=== PATIENT | female | born 1925 | race Caucasian/White ===

== ENCOUNTER 2016-09-04 16:36 | Emergency (ER) | payer MEDICARE, BC ==
[2016-09-04] MEDS ORDERED: ONDANSETRON HCL IV 4 MG/2 ML VIAL IVP ONE (17:16)
--- NOTE | 2016-09-04 17:21 | Emergency Department Record ---
History of Present Illness - General Chief complaint: Vomiting Stated complaint: SHAKING UNCONTROLLED Time Seen by Provider: 09/04/16 17:16 Source: Patient Mode of Arrival: Ambulatory Limitations: No limitations - History of Present Illness Initial comments: 89 yo female presents to ED with a CC of nausea, vomiting, and cough symptoms that began this morning. Patient has a history of dementia, and her daughter provides the patient's recent history. Daughter denies fevers or chills, but does report that several family members have had viral syndromes recently. Patient denies abdominal pain symptoms. MD complaint: Nausea, Vomiting Onset/Timin -: Hour(s) Description of Vomiting: Watery Description of Diarrhea: Water Associated Abdominal Pain: No Radiation: None Severity: Moderate Consistency: Intermittent Improves with: None Worsens with: None Associated Symptoms: Nausea/vomiting, Weakness - Related Data Home Medications Medication Instructions Recorded Confirmed Last Taken Amlodipine Besylate 2.5 mg PO DAILY 11/21/15 09/04/16 09/04/16 Aspirin [Adult Low Dose Aspirin EC] 81 mg PO DAILY 11/21/15 09/04/16 09/04/16 Donepezil HCl [Aricept] 10 mg PO DAILY 11/21/15 09/04/16 09/04/16 Memantine HCl [Namenda Xr] 28 mg PO DAILY 11/21/15 09/04/16 09/04/16 Simvastatin [Zocor] 20 mg PO DAILY 11/21/15 09/04/16 09/04/16 Previous Rx's Medication Instructions Recorded Ondansetron [Zofran Odt] 4 mg PO Q6H PRN #20 tab.rapdis 09/04/16 Allergies Allergy/AdvReac Type Severity Reaction Status Date / Time No Known Drug Allergies Allergy Verified 11/21/15 12:46 Travel Screening - Travel/Exposure Within Last 30 Days Have you traveled within the last 30 days?: No Review of Systems Constitutional: Denies: Chills, Fever, Malaise, Night sweats Eyes: Denies: Eye discharge, Eye pain ENT: Denies: Congestion, Ear pain, Epistaxis Respiratory: Denies: Cough, Dyspnea Cardiovascular: Denies: Chest pain, Dyspnea on exertion Endocrine: Denies: Fatigue, Heat or cold intolerance Gastrointestinal: Reports: Diarrhea, Nausea, Vomiting. Denies: Abdominal pain Genitourinary: Denies: Dysuria, Frequency, Hematuria, Incontinence Musculoskeletal: Denies: Arthralgia, Back pain, Gout, Joint swelling Skin: Denies: Bruising, Change in color Neurological: Reports: Tremors (now resolved). Denies: Abnormal gait, Confusion , Headache, Seizure Psychiatric: Denies: Anxiety Hematological/Lymphatic: Denies: Anemia, Blood Clots Past Medical History - SOCIAL HISTORY Smoking Status: Never smoker Alcohol Use: None Drug Use: None - RESPIRATORY Hx Respiratory Disorders: No - CARDIOVASCULAR Hx Cardio Disorders: Yes Hx Irregular Heartbeat: Yes - NEURO Hx Neuro Disorders: Yes Hx Dementia: Yes (early) - GI Hx GI Disorders: Yes Hx Reflux: Yes - Hx Genitourinary Disorders: No - ENDOCRINE Hx Endocrine Disorders: No - MUSCULOSKELETAL Hx Musculoskeletal Disorders: Yes Hx Arthritis: Yes - PSYCH Hx Psych Problems: No - HEMATOLOGY/ONCOLOGY Hx Hematology/Oncology Disorders: No Family Medical History Any Significant Family History?: Yes Hx Diabetes: Mother Physical Exam - General General Appearance: Alert, Oriented x3, Cooperative, No acute distress Limitations: No limitations - Head Head exam: Atraumatic, Normocephalic, Normal inspection Head exam detail: negative: Abrasion, Contusion, Seymour's sign, General tenderness, Hematoma, Laceration - Eye Eye exam: Normal appearance. negative: Conjunctival injection, Periorbital swelling, Periorbital tenderness, Scleral icterus - ENT Ear exam: negative: Auricular hematoma, Auricular trauma Nasal Exam: negative: Active bleeding, Discharge, Dried blood, Foreign body Mouth exam: negative: Drooling, Laceration, Muffled voice, Tongue elevation - Neck Neck exam: Normal inspection. negative: Meningismus, Tenderness - Respiratory Respiratory exam: Normal lung sounds bilaterally, Other (? crackles right base) . negative: Rales, Respiratory distress, Rhonchi, Stridor - Cardiovascular Cardiovascular Exam: Normal rhythm, Normal heart sounds, Tachycardia - GI/Abdominal GI/Abdominal exam: Soft. negative: Rebound, Rigid, Tenderness - Rectal Rectal exam: Deferred - exam: Deferred - Extremities Extremities exam: Normal inspection. negative: Calf tenderness, Pedal edema, Tenderness - Back Back exam: Denies: CVA tenderness (R), CVA tenderness (L) - Neurological Neurological exam: Alert, Normal gait, Oriented X3 - Psychiatric Psychiatric exam: Normal affect, Normal mood - Skin Skin exam: Normal color. negative: Abrasion Type of lesion: negative: abrasion Course Vital Signs 09/04/16 16:38 Temperature 98.5 F Pulse Rate 146 H Respiratory 40 H Rate Blood Pressure 176/134 Pulse Ox 98 - Reevaluation(s) Reevaluation #1: 09/04/16 17:52 CXR: Chronic interstitial changes, hyperinflation Reevaluation #2: 09/04/16 18:49 Labs reviewed and are grossly unremarkable for an acute process. Patient was reassessed, has not had any further episodes of vomiting or loose stools, and reports that she is feeling much better. Will perform PO challenge , and if patient is till feeling well, discharge home on Zofran for her nausea/ vomiting symptoms. Medical Decision Making - Lab Data Result diagrams: 09/04/16 17:29 09/04/16 17:29 Disposition Disposition: Discharge Clinical Impression: Nausea and vomiting Qualifiers: Vomiting type: unspecified Vomiting Intractability: non-intractable Qualified Code(s): R11.2 - Nausea with vomiting, unspecified Disposition: Home, Self-Care Condition: (2) Stable Instructions: Acute Nausea and Vomiting (ED) Additional Instructions: Return to ED if your symptoms worsen or if you have any concerns. Zofran as directed. Follow-up with your family doctor in 3-5 days as directed. Prescriptions: Ondansetron [Zofran Odt] 4 mg PO Q6H PRN #20 tab.rapdis PRN Reason: Nausea/Vomiting Forms: Patient Portal Access Time of Disposition: 18:52
[2016-09-04] MEDS ORDERED: 0.9 % SODIUM CHLORIDE 1000ML 1,000 ML IV SCH (17:30)
[2016-09-04 17:40] LABS: HEMOGLOBIN 13.3 gm/dl (11.6-16.0); MEAN CELL VOLUME 95.3 fl (81-97); MEAN CORPUSCULAR HEMOGLOBIN 30.9 pg (27-33); MEAN CORPUSCULAR HGB CONC 32.4 g/dl (32-36); MEAN PLATELET VOLUME 9.7 fl (7.4-10.4); PLATELET COUNT 341 K/uL (130-400); RED CELL DISTRIBUTION WIDTH 14.3 % (11.5-14.5); WHITE BLOOD COUNT W/O DIFF 8.5 K/uL (4.2-12.2)
[2016-09-04 17:52] LABS: ALB/GLOB RATIO 1.2 (1.1-1.8); ALBUMIN 4.2 gm/dL (3.5-5.0); ALKALINE PHOSPHATASE 141 U/L (38-126); ALT/SGPT 18 U/L (9-52); ANION GAP 17.2 (7-16); AST/SGOT 15 U/L (14-36); BILIRUBIN,TOTAL 0.52 mg/dL (0.2-1.3); BLOOD UREA NITROGEN 17 mg/dL (7-17); CARBON DIOXIDE 22.8 mmol/L (22-30); CREATININE 0.7 mg/dL (0.52-1.04); EST GLOMERULAR FILTRATION RATE > 60 ml/min; GLUCOSE,RANDOM 180 mg/dL (70-110); TOTAL PROTEIN 7.6 gm/dL (6.3-8.2)
[2016-09-04 17:53] LABS: PLATELET ESTIMATE NORMAL (NORMAL)
[2016-09-04 17:58] LABS: INFLUENZA A NEGATIVE (NEGATIVE); INFLUENZA B NEGATIVE (NEGATIVE)
[2016-09-04 18:31] LABS: URINE APPEARANCE CLEAR; URINE BILIRUBIN NEGATIVE (NEGATIVE); URINE BLOOD TRACE-I (NEGATIVE); URINE COLOR YELLOW; URINE GLUCOSE (UA) NEGATIVE (NEGATIVE); URINE KETONE 40 mg/dL (NEGATIVE); URINE LEUKOCYTE ESTERASE NEGATIVE (NEGATIVE); URINE NITRITE NEGATIVE (NEGATIVE); URINE UROBILINOGEN 0.2 E.U./dL (0.20 - 1.00)
[2016-09-04 18:40] LABS: URINE AMORPHOUS SEDIMENT FEW; URINE WBC 0 - 2 (0-2/hpf)
--- NOTE | 2016-09-10 15:02 | RADIOLOGY REPORT ---
EXAM: CHEST, TWO VIEWS HISTORY: VOMITING AND LOOSE STOOLS. TREMOR. TECHNIQUE: Upright AP and lateral views of the chest were obtained. Comparison: None. FINDINGS: The cardiac silhouette is mildly enlarged. There is borderline to mild pulmonary venous hypertension. Minor reticular opacity prominence is present in the lower lungs. While these likely relate to chronic interstitial changes, interstitial edema or mild interstitial pneumonitis would be difficult to exclude. No costophrenic angle blunting or pneumothorax is seen. There are degenerative changes scattered within the visualized spine and shoulder girdles. IMPRESSION: 1. THE HEART PROJECTS MILDLY ENLARGED AND THERE IS BORDERLINE TO MILD PULMONARY VENOUS HYPERTENSION. 2. NOT MENTIONED ABOVE IS HYPERINFLATION OF THE LUNGS CONSISTENT WITH COPD. 3. MILD RETICULAR OPACITY PROMINENCE IN THE LOWER LUNGS, DISCUSSED ABOVE. JOB NUMBER: [id number] [facility]
== END 2016-09-04 19:08 | disposition home or self-care (01) ==
LOC: ER 16:36
DX: R11.2 Nausea with vomiting, unspecified (principal); R05 Cough; R53.1 Weakness; F03.90 Unspecified dementia, unspecified severity, without behavioral disturbance, psychotic disturbance, mood disturbance, and anxiety
CPT/HCPCS: 99284 ×2; 96374; 96361; 80053; 81001; 87400; 85027; 71020; J2405; J7030